=== PATIENT | male | born 1950 | race Asian ===

== ENCOUNTER 2023-12-02 08:49 | Emergency (ER) | payer OTHER ==
[~2023-12-02] VITALS: Ht 177.8 cm; Wt 81.6 kg
[2023-12-02 08:50] VITALS: BP_SYST 149; PULSE 79; RESP 18; TEMP 97.1; O2SAT 98
[2023-12-02] MEDS ORDERED: IBUP-1969 PO (10:01)
[2023-12-02] MEDS ORDERED: CEPH-548 PO (10:01)
[2023-12-02] MEDS: LIDOCAINE 1% 10 MG/ML, 20 ML MDV INJ ONE (10:07)
[2023-12-02] MEDS: DIPHTH,PERTUSS(ACELL),TET VAC 0.5 ML VIAL (Tdap) I.M. ONE (10:18)
[2023-12-02 10:23] VITALS: BP_SYST 145; PULSE 86; RESP 17; TEMP 97.5; O2SAT 99
== END 2023-12-02 10:10 | disposition home or self-care (01) ==
LOC: SED 08:49
DX: S61.215A Laceration without foreign body of left ring finger without damage to nail, initial encounter (principal); Z23 Encounter for immunization; Z79.899 Other long term (current) drug therapy; Z79.2 Long term (current) use of antibiotics; X58.XXXA Exposure to other specified factors, initial encounter; Y93.89 Activity, other specified; Y92.89 Other specified places as the place of occurrence of the external cause; Y99.8 Other external cause status
CPT/HCPCS: 90715; 99283

== ENCOUNTER 2023-12-04 07:58 | Emergency (ER) | payer OTHER ==
[~2023-12-04] VITALS: Ht 177.8 cm; Wt 81.6 kg
[~2023-12-04 07:58] MED LIST: CEPH-548 PO; IBUP-1969 PO
[2023-12-04 08:03] VITALS: BP_SYST 136; PULSE 77; RESP 18; TEMP 97.3; O2SAT 95
[2023-12-04] MEDS ORDERED: BACITRACIN 1 GM OINT TP ONE (08:23)
[2023-12-04 08:28] VITALS: BP_SYST 136; PULSE 77; RESP 18; TEMP 97.3; O2SAT 95
== END 2023-12-04 08:33 | disposition home or self-care (01) ==
LOC: SED 07:58
DX: Z48.00 Encounter for change or removal of nonsurgical wound dressing (principal)
CPT/HCPCS: 99282